=== PATIENT | female | born 1965 | race Two or more races ===

== ENCOUNTER 2016-12-06 20:21 | Emergency (ER) | payer OTHER ==
--- NOTE | 2016-12-06 20:30 | PDOC ---
Rapid Medical Evaluation Time Seen by Provider: 12/06/16 20:29 Medical Evaluation: 12/06/16 20:29 51 year old female with history of asthma (infrequent exacerbations, never intubated) who presents with two weeks of dyspnea and wheezing. Ran out of albuterol MDI. Using nebs at home; took prednisone on Monday and again two hours ago, also took dexamethason 2 x 0.5mg tablets yesterday and one this morning without relief. No fevers/chills. No tachypnea or accessory muscle use. Expiratory wheezing with good air movement -DuoNeb -To FT for further evaluation
[2016-12-06 20:34] VITALS: BP 147/98; PULSE 59; TEMP 98.4; BMI 25.7
[2016-12-06] MEDS ORDERED: ALBUTEROL SO4 2.5/IPRATROPIUM 0.5 INH SOL 3 ML VIAL.NEB. NEB ONE (20:35)
[2016-12-06] MEDS ORDERED: predniSONE 20 MG TABLET (UD) PO ONE (21:03)
--- NOTE | 2016-12-06 21:03 | PDOC ---
History of Present Illness - General Chief Complaint: Asthma Stated Complaint: ASTHMA Time Seen by Provider: 12/06/16 20:29 History Source: Patient Exam Limitations: No Limitations - History of Present Illness Initial Comments: 12/06/16 20:55 CHIEF COMPLAINT: wheezing with shortness of breath 2 weeks HISTORY OF PRESENT ILLNESS: Patient is a 51-year-old female with a history of asthma who has not had an asthma exacerbation for the last 10 years here today complaining of dyspnea and wheezing with dry cough 2 weeks. Patient reports that in one week she ran out of her albuterol multidose inhaler. Patient took a friend's prednisone 10 mg on Monday and another one at 6 PM 10 mg and took dexamethasone 0.5 mg tabs today and one yesterday. Patient denies ever having to be intubated. Patient eyes any nasal congestion or discharge or any productive cough. She denies any other symptoms. Patient reports that she does feel slightly short of breath at times. Patient is able to speak in complete sentences without shortness of breath noted or sensory muscle use. She denies any recent travel. Patient denies any sick contacts. : 12/06/16 21:12 Timing/Duration: getting worse (over 2 weeks ) Severity: moderate Associated Symptoms: reports: shortness of breath (intermittent for 2 weeks with wheezing and dry cough ) Past History - Past Medical History Allergies/Adverse Reactions: Allergies Allergy/AdvReac Type Severity Reaction Status Date / Time No Known Allergies Allergy Verified 12/06/16 20:34 Home Medications: Ambulatory Orders Albuterol 0.083% Nebulizer Lyndsey [Ventolin 0.083% Nebulizer Soln -] 1 neb NEB Q4H PRN #1 vial 12/06/16 Albuterol Sulfate Inhaler - [Ventolin HFA Inhaler -] 2 inh PO Q4H PRN #1 inh Prednisone [Deltasone -] 20 mg PO BID #8 tablet 12/06/16 Salmeterol/Fluticasone [Advair 100Mcg/50Mcg -] 1 inh PO BID #1 diskus MDD 2 Asthma: Yes - Psycho/Social/Smoking Cessation Hx Anxiety: No Suicidal Ideation: No Smoking History: Never smoked Have you smoked in the past 12 months: No Information on smoking cessation initiated: No Hx Alcohol Use: No Drug/Substance Use Hx: No Substance Use Type: None Review of Systems - Review of Systems Able to Perform ROS?: Yes Constitutional: No: Symptoms Reported HEENTM: No: Symptoms Reported Respiratory: Yes: Cough, Shortness of Breath, SOB with Exertion, Wheezing (for 2 weeks ) Cardiac (ROS): No: Symptoms Reported ABD/GI: No: Symptoms Reported : No: Symptoms Reported Musculoskeletal: No: Symptoms Reported Integumentary: No: Symptoms Reported Neurological: No: Symptoms reported *Physical Exam - Vital Signs Last Vital Signs Temp Pulse Resp BP Pulse Ox 98.4 F 59 L 18 147/98 98 12/06/16 20:31 12/06/16 20:31 12/06/16 20:31 12/06/16 20:31 12/06/16 20:31 - Physical Exam General Appearance: Yes: Appropriately Dressed HEENT: positive: Normal ENT Inspection Neck: negative: Lymphadenopathy (R), Lymphadenopathy (L) Respiratory/Chest: positive: Lungs Clear, Normal Breath Sounds (after neb), Decreased Breath Sounds (b/l prior to neb than cta b/l ). negative: Chest Tender, Respiratory Distress, Accessory Muscle Use, Labored Respiration, Paradoxal Breathing, Crackles, Rales, Rhonchi, Stridor, Wheezing Integumentary: positive: Normal Color Neurologic: positive: Alert, Normal Response ED Treatment Course - Medications Given in the ED: ED Medications Discontinued Medications Generic Name Dose Route Start Last Admin Trade Name Freq PRN Reason Stop Dose Admin Albuterol/Ipratropium 1 amp 12/06/16 20:35 12/06/16 20:55 Duoneb - NEB 12/06/16 20:36 1 amp ONCE ONE Administration Medical Decision Making - Medical Decision Making 12/06/16 21:11 12/06/16 21:12 Patient is a 51-year-old female with a history of asthma who has not had an asthma exacerbation for the last 10 years here today complaining of dyspnea and wheezing with dry cough 2 weeks. Patient reports that in one week she ran out of her albuterol multidose inhaler. Patient took a friend's prednisone 10 mg on Monday and another one at 6 PM 10 mg and took dexamethasone 0.5 mg tabs today and one yesterday. Patient denies ever having to be intubated. Patient eyes any nasal congestion or discharge or any productive cough. She denies any other symptoms. Patient reports that she does feel slightly short of breath at times. Patient is able to speak in complete sentences without shortness of breath noted or sensory muscle use. She denies any recent travel. Patient denies any sick contacts. Asthma exacerbation Plan: DuoNeb Prednisone 40 mg by mouth now Prednisone 20 mg twice a day start tomorrow 4 days Albuterol 0.083% neb solution every 4 hours as needed for chest tightness, wheezing shortness of breath Albuterol multidose inhaler HFA 2 puffs every 4 hours as needed for chest tightness, wheezing, or shortness of breath advair 100mcg/50 mcg one inhale bid Follow-up with your primary care provider as soon as possible for further evaluation : 12/06/16 21:21 12/06/16 21:24 Feeling better lungs clear to auscultation bilaterally 12/06/16 21:25 *DC/Admit/Observation/Transfer Diagnosis at time of Disposition: Asthma exacerbation - Discharge Dispostion Disposition: HOME Condition at time of disposition: Stable - Prescriptions Prescriptions: Salmeterol/Fluticasone [Advair 100Mcg/50Mcg -] 1 inh PO BID #1 diskus MDD 2 Prednisone [Deltasone -] 20 mg PO BID #8 tablet Albuterol 0.083% Nebulizer Lyndsey [Ventolin 0.083% Nebulizer Soln -] 1 neb NEB Q4H PRN #1 vial PRN Reason: Short Of Breath/Wheezing Albuterol Sulfate Inhaler - [Ventolin HFA Inhaler -] 2 inh PO Q4H PRN #1 inh PRN Reason: Short Of Breath/Wheezing - Referrals Referrals: STAFF,NOT ON [Primary Care Provider] - Manny Wetzel MD [Staff Physician] - - Patient Instructions Additional Instructions: Follow up Left with your primary care provider within the next few days Return to emergency room if any difficulty breathing or new symptoms develop Follow up with actuary as soon as possible Avoid taking others medication patient voiced understanding of discharge instructions and all questions were answered
[2016-12-06] MEDS ORDERED: predniSONE 20 MG TABLET (UD) ONE (21:08)
== END 2016-12-06 21:45 | disposition home or self-care (01) ==
LOC: JERFT 20:21 → SUPCPDRO 20:21 → JERFT 21:45
PROC: 3E0F7GC Introduction of Other Therapeutic Substance into Respiratory Tract, Via Natural or Artificial Opening (ICD-10-PCS; principal; 2016-12-06)
DX: J45.901 Unspecified asthma with (acute) exacerbation (principal)
CPT/HCPCS: 99281-25

== ENCOUNTER 2018-01-31 04:10 | Emergency (ER) | payer OTHER ==
[2018-01-31 04:50] VITALS: BP 158/102; PULSE 87; TEMP 98.4; BMI 25.0
[2018-01-31] MEDS ORDERED: ALBUTEROL SO4 2.5/IPRATROPIUM 0.5 INH SOL 3 ML VIAL.NEB. NEB STA ×2 (05:03)
[2018-01-31] MEDS ORDERED: predniSONE 20 MG TABLET (UD) PO ONE (05:03)
--- NOTE | 2018-01-31 05:03 | PDOC ---
History of Present Illness - History of Present Illness Initial Comments: 01/31/18 05:06 The patient is a 52 year old female with history of asthma who presents to the ED complaining of approximately 3 days of progressively worsening chest tightness with associated nonproductive cough, consistent with her asthma. She states she has been using her inhaler at home without relief. The patient denies fever or chills. She denies cigarette smoking. <Randee Fontaine - Last Filed: 01/31/18 05:06> - General History Source: Patient <Peter Rivera - Last Filed: 01/31/18 06:15> - General Chief Complaint: Asthma Stated Complaint: ASTHMA Time Seen by Provider: 01/31/18 05:02 Past History <Randee Fontaine - Last Filed: 01/31/18 05:06> - Past Medical History Asthma: Yes COPD: No - Suicide/Smoking/Psychosocial Hx Smoking History: Never smoked Have you smoked in the past 12 months: No Information on smoking cessation initiated: No Hx Alcohol Use: No Drug/Substance Use Hx: No Substance Use Type: None <Peter Rivera - Last Filed: 01/31/18 06:15> - Past Medical History Allergies/Adverse Reactions: Allergies Allergy/AdvReac Type Severity Reaction Status Date / Time No Known Allergies Allergy Verified 01/31/18 04:44 Home Medications: Ambulatory Orders Albuterol 0.083% Nebulizer Lyndsey [Ventolin 0.083% Nebulizer Soln -] 1 neb NEB Q4H PRN #1 vial 12/06/16 Albuterol Sulfate Inhaler - [Ventolin HFA Inhaler -] 2 inh PO Q4H PRN #1 inh Salmeterol/Fluticasone [Advair 100Mcg/50Mcg -] 1 inh PO BID #1 diskus MDD 2 predniSONE [Deltasone -] 20 mg PO BID #8 tablet 12/06/16 Review of Systems - Review of Systems Able to Perform ROS?: Yes Comments:: 01/31/18 05:07 GENERAL/CONSTITUTIONAL: No fever or chills. No weakness. HEAD, EYES, EARS, NOSE AND THROAT: No change in vision. No ear pain or discharge. No sore throat. CARDIOVASCULAR: No chest pain or lightheadedness. RESPIRATORY: +Chest tightness, nonproductive cough. No wheezing or hemoptysis. GASTROINTESTINAL: No nausea, vomiting, diarrhea or constipation. GENITOURINARY: No dysuria, frequency, or change in urination. MUSCULOSKELETAL: No joint or muscle swelling or pain. No neck or back pain. SKIN: No rash NEUROLOGIC: No headache, vertigo, loss of consciousness, or change in strength/ sensation. ENDOCRINE: No increased thirst. No abnormal weight change. HEMATOLOGIC/LYMPHATIC: No anemia, easy bleeding, or history of blood clots. ALLERGIC/IMMUNOLOGIC: No hives or skin allergy. <Randee Fontaine - Last Filed: 01/31/18 05:06> *Physical Exam - Vital Signs Last Vital Signs Temp Pulse Resp BP Pulse Ox 98.4 F 87 20 158/102 94 L 01/31/18 04:45 01/31/18 04:45 01/31/18 04:45 01/31/18 04:45 01/31/18 04:45 - Physical Exam Comments: 01/31/18 05:09 GENERAL: Awake, alert, and fully oriented, in no acute distress HEAD: No signs of trauma EYES: PERRLA, EOMI, sclera anicteric, conjunctiva clear ENT: Auricles normal inspection, hearing grossly normal, nares patent, oropharynx clear without exudates. Moist mucosa NECK: Normal ROM, supple, no lymphadenopathy, JVD, or masses LUNGS: +Decreased breath sounds bilaterally. No wheezes, and no crackles HEART: Regular rate and rhythm, normal S1 and S2, no murmurs, rubs or gallops ABDOMEN: Soft, nontender, normoactive bowel sounds. No guarding, no rebound. No masses EXTREMITIES: Normal range of motion, no edema. No clubbing or cyanosis. No cords, erythema, or tenderness NEUROLOGICAL: Cranial nerves II through XII grossly intact. Normal speech, normal gait SKIN: Warm, Dry, normal turgor, no rashes or lesions noted. <Randee Fontaine - Last Filed: 01/31/18 05:06> - Vital Signs Last Vital Signs Temp Pulse Resp BP Pulse Ox 98.4 F 87 20 158/102 94 L 01/31/18 04:45 01/31/18 04:45 01/31/18 04:45 01/31/18 04:45 01/31/18 04:45 <Peter Rivera - Last Filed: 01/31/18 06:15> ED Treatment Course - Medications Given in the ED: ED Medications Discontinued Medications Generic Name Dose Route Start Last Admin Trade Name Naye PRN Reason Stop Dose Admin Prednisone 60 mg 01/31/18 05:03 01/31/18 05:05 Deltasone - PO 01/31/18 05:04 60 mg ONCE ONE Administration <Randee Fontaine - Last Filed: 01/31/18 05:06> Medical Decision Making - Medical Decision Making 01/31/18 06:14 Dr. Rivera: The scribe's documentation has been prepared under my direction and personally reviewed by me in its entirery. I confirm that the note above accurately reflects all work, treatment, procedures, and medical decision making performed by me. Pt walked out after pt received treatment. <Peter Rivera - Last Filed: 01/31/18 06:15> *DC/Admit/Observation/Transfer - Attestations Scribe Attestion: 01/31/18 05:09 Documentation prepared by Randee Fontaine, acting as medical pathologist for Peter Rivera DO. <Randee Fontaine - Last Filed: 01/31/18 05:06> - Discharge Dispostion Decision to Admit order: No <Peter Rivera - Last Filed: 01/31/18 06:15> Diagnosis at time of Disposition: Asthma exacerbation - Discharge Dispostion Disposition: ELOPED Condition at time of disposition: Stable - Patient Instructions Printed Discharge Instructions: Asthma -- Adult
[2018-01-31] MEDS ORDERED: predniSONE 20 MG TABLET (UD) ONE (05:09)
== END 2018-01-31 05:40 | disposition left against medical advice (07) ==
LOC: JER 04:10
PROC: 3E0F7GC Introduction of Other Therapeutic Substance into Respiratory Tract, Via Natural or Artificial Opening (ICD-10-PCS; principal; 2018-01-31)
DX: J45.21 Mild intermittent asthma with (acute) exacerbation (principal)
CPT/HCPCS: 94640; 99281-25; J7620

== ENCOUNTER 2020-05-12 12:48 | Emergency (ER) | payer OTHER ==
[2020-05-12 12:55] VITALS: BP 137/85; PULSE 55; TEMP 98.2; BMI 27.4
[2020-05-12] MEDS ORDERED: KETOROLAC TROMETHAMINE 60 MG/2 ML VIAL IM ONE (13:48)
[2020-05-12] MEDS ORDERED: KETOROLAC TROMETHAMINE 60 MG/2 ML VIAL ONE (13:50)
--- NOTE | 2020-05-12 13:52 | PDOC ---
History of Present Illness - General Chief Complaint: Back Pain Stated Complaint: RT. SIDE PAIN Time Seen by Provider: 05/12/20 13:04 - History of Present Illness Initial Comments: 05/12/20 13:50 54-year-old female with a past medical history of hypertension and asthma presents for evaluation of lower back pain x5 days without radicular or systemic symptoms. No saddle anesthesias or loss of bowel or bladder function. Past History - Medical History Allergies/Adverse Reactions: Allergies Allergy/AdvReac Type Severity Reaction Status Date / Time No Known Allergies Allergy Verified 05/12/20 12:52 Home Medications: Ambulatory Orders Albuterol 0.083% Nebulizer Lyndsey [Ventolin 0.083% Nebulizer Soln -] 1 neb NEB Q4H PRN #1 vial 12/06/16 Albuterol Sulfate Inhaler - [Ventolin HFA Inhaler -] 2 inh PO Q4H PRN #1 inh 12/06/16 Salmeterol/Fluticasone [Advair 100Mcg/50Mcg -] 1 inh PO BID #1 diskus MDD 2 12/06/16 predniSONE [Deltasone -] 20 mg PO BID #8 tablet 12/06/16 Cyclobenzaprine HCl [Flexeril 10 mg] 10 mg PO HS PRN #10 tablet 05/12/20 Asthma: Yes COPD: No - Reproductive History Is Patient Now?: No - Immunization History Immunization Up to Date: Yes - Psycho-Social/Smoking History Smoking History: Never smoked Have you smoked in the past 12 months: No - Substance Abuse Hx (Audit-C & DAST Scrn) How often the patient has a drink containing alcohol: Never Score: In Men: 4 or > Positive; In Women: 3 or > Positive: 0 Screen Result (Pos requires Nsg. Audit-10AR): Negative In the last yr the pt used illegal drug/Rx for NonMed reason: No Score: Yes response is considered Positive: 0 Screen Result (Positive result requires Nsg. DAST-10): Negative Review of Systems - Review of Systems Constitutional: No: Chills, Fever, Malaise, Night Sweats : No: Dysuria, Incontinence Musculoskeletal: Yes: Back Pain Neurological: No: Numbness, Paresthesia, Tingling, Weakness *Physical Exam - Vital Signs Last Vital Signs Temp Pulse Resp BP Pulse Ox 98.2 F 55 L 20 137/85 100 05/12/20 12:52 05/12/20 12:52 05/12/20 12:52 05/12/20 12:52 05/12/20 12:52 - Physical Exam 05/12/20 13:51 Lumbar spine skin color temperature normal range of motion is slightly decreased. No midline tenderness. Moderate bilateral paralumbar musculature spasm and tenderness 5 out of 5 strength bilateral lower extremities without gross sensorimotor deficits thighs and calves are soft and nontender neurovascular intact ED Treatment Course - Medications Given in the ED: ED Medications Discontinued Medications Generic Name Dose Route Start Last Admin Trade Name Freq PRN Reason Stop Dose Admin Ketorolac Tromethamine 60 mg 05/12/20 13:48 05/12/20 13:50 Toradol Injection - IM 05/12/20 13:49 60 mg ONCE ONE Administration Medical Decision Making - Medical Decision Making 05/12/20 13:51 One-time injection of Toradol in the emergency room Flexeril at home as well as Tylenol follow-up with orthopedics I have reviewed the pathophysiology with the patient. They are in agreement with the treatment plan all questions were answered to their satisfaction. Understanding for follow-up without fail was also conveyed to the patient. Again they are in agreement. Discharge - Discharge Information Problems reviewed: Yes Clinical Impression/Diagnosis: Lumbar strain Condition: Stable Disposition: HOME - Admission No - Additional Discharge Information Prescriptions: Cyclobenzaprine HCl [Flexeril 10 mg] 10 mg PO HS PRN #10 tablet PRN Reason: Muscle Spasms - Follow up/Referral Referrals: Feliberto Couch DO [Staff Physician] - - Patient Discharge Instructions Additional Instructions: Please take the muscle relaxer as directed there is 1 tablet before bedtime it will make you sleepy. Return to the emergency room for worsening symptoms and without fail follow-up with orthopedic surgery in 1 to 2 days for further evaluation and treatment options. You were given a one-time injection of a long-acting anti-inflammatory in the emergency room. You should not take anti- inflammatories at home because of your blood pressure medication. You may take Tylenol as directed for pain for additional pain control on top of the anti- inflammatories already prescribed. Again return to the emergency room should symptoms worsen and without fail follow-up with orthopedic surgery in 1 to 2 days for further evaluation and treatment options. - Post Discharge Activity
== END 2020-05-12 13:55 | disposition home or self-care (01) ==
LOC: JERFT 12:48
PROC: 3E0234Z Introduction of Serum, Toxoid and Vaccine into Muscle, Percutaneous Approach (ICD-10-PCS; principal; 2020-05-12)
DX: S39.012A Strain of muscle, fascia and tendon of lower back, initial encounter (principal)
CPT/HCPCS: 99284-25

== ENCOUNTER 2020-11-01 10:38 | Emergency (ER) | payer SELFPAY ==
[2020-11-01 10:48] VITALS: BP 142/87; PULSE 82; TEMP 36.6; BMI 26.6
[2020-11-01] MEDS ORDERED: ALBUTEROL SO4 HFA INHALER IH ONE ×2 (11:39→11:41)
[2020-11-01 12:00] LABS: EOS % 3.7 % (0-4.5); HEMATOCRIT 40.9 % (32.4-45.2); HEMOGLOBIN 13.7 GM/dL (10.7-15.3); LYMPH % 20.5 % (8-40); MCH 29.1 pg (25.7-33.7); MCHC 33.6 g/dl (32.0-36.0); MEAN CELL VOLUME 86.7 fl (80-96); MEAN PLT VOLUME 8.9 fl (7.5-11.1); MONO % 5.4 % (3.8-10.2); NEUT % 69.4 % (42.8-82.8); PLATELET COUNT 338 K/MM3 (134-434); RBC 4.72 M/mm3 (3.60-5.2); RDW 14.1 % (11.6-15.6); WHITE BLOOD COUNT 8.1 K/mm3 (4.0-10.0)
[2020-11-01 12:21] LABS: CHLORIDE 102 mmol/L (98-107); POTASSIUM 3.7 mmol/L (3.5-5.1); SODIUM 141 mmol/L (136-145)
[2020-11-01 12:23] LABS: CALCIUM 9.6 mg/dL (8.5-10.1)
[2020-11-01 12:24] LABS: ALBUMIN 4.1 g/dl (3.4-5.0); ANION GAP 8 MMOL/L (8-16); BLOOD UREA NITROGEN 10.7 mg/dL (7-18); CO2 30 mmol/L (21-32); GLUCOSE,RANDOM 100 mg/dL (74-106)
[2020-11-01 12:27] LABS: CREATININE 0.8 mg/dL (0.55-1.3); SGOT/AST 9 U/L (15-37); SGPT/ALT 12 U/L (13-61)
[2020-11-01 12:29] LABS: BILIRUBIN,TOTAL 0.5 mg/dL (0.2-1); TOT PROT 7.8 g/dl (6.4-8.2)
[2020-11-01 12:30] LABS: ALK PHOS 80 U/L (45-117)
== END 2020-11-01 14:47 | disposition home or self-care (01) ==
LOC: JER 10:38
PROC: 3E0F7GC Introduction of Other Therapeutic Substance into Respiratory Tract, Via Natural or Artificial Opening (ICD-10-PCS; principal; 2020-11-01)
DX: Z11.52 Encounter for screening for COVID-19 (principal)
CPT/HCPCS: 36415; 71046-TC-FY; 80053; 82550; 84484; 85025; 93005; 93010; 99285-25; C9803; U0003

== ENCOUNTER 2021-08-31 23:49 | Emergency (ER) | payer OTHER ==
[2021-09-01 00:13] VITALS: BP 128/76; PULSE 84; TEMP 98.8; BMI 27.8
[2021-09-01 01:39] LABS: EOS % 1.2 % (0-4.5); HEMOGLOBIN 12.9 GM/dL (10.7-15.3); LYMPH % 5.9 % (8-40); MCH 29.1 pg (25.7-33.7); MCHC 33.9 g/dl (32.0-36.0); MEAN CELL VOLUME 85.9 fl (80-96); MONO % 2.2 % (3.8-10.2); NEUT % 90.7 % (42.8-82.8); PLATELET COUNT 307 10^3/uL (134-434); RBC 4.43 M/mm3 (3.60-5.2); RDW 14.2 % (11.6-15.6); WHITE BLOOD COUNT 10.5 K/mm3 (4.0-10.0)
[2021-09-01 01:43] LABS: PH,URINE 5.5 (5.0-8.0); URINE APPEARANCE CLOUDY; URINE BILIRUBIN NEGATIVE (NEGATIVE); URINE COLOR YELLOW; URINE GLUCOSE (UA) NEGATIVE (NEGATIVE); URINE KETONE NEGATIVE (NEGATIVE); URINE LEUK ESTERASE NEGATIVE (NEGATIVE); URINE NITRITE NEGATIVE (NEGATIVE); URINE PROTEIN NEGATIVE (NEGATIVE); URINE UROBILINOGEN 0.2 mg/dL (0.2-1.0)
[2021-09-01 01:57] LABS: CHLORIDE 104 mmol/L (98-107); SODIUM 138 mmol/L (136-145)
[2021-09-01 01:59] LABS: CALCIUM 9.1 mg/dL (8.5-10.1)
[2021-09-01 02:00] LABS: ALBUMIN 3.4 g/dl (3.4-5.0); ANION GAP 8 MMOL/L (8-16); BLOOD UREA NITROGEN 12.7 mg/dL (7-18); CO2 27 mmol/L (21-32); GLUCOSE,RANDOM 129 mg/dL (74-106); MAGNESIUM 2.5 mg/dL (1.8-2.4)
[2021-09-01 02:02] LABS: SGPT/ALT 10 U/L (13-61)
[2021-09-01 02:03] LABS: SGOT/AST 11 U/L (15-37)
[2021-09-01 02:04] LABS: BILIRUBIN,TOTAL 0.4 mg/dL (0.2-1)
[2021-09-01 02:05] LABS: ALK PHOS 82 U/L (45-117)
== END 2021-09-01 02:26 | disposition home or self-care (01) ==
LOC: JER 23:49
DX: R00.2 Palpitations (principal)
CPT/HCPCS: 36415; 71046-TC-FY; 80053; 81003; 82550; 83735; 84484; 84702; 85025; 87086; 93005; 93010; 99285-25